=== PATIENT | female | born 1955 | race Caucasian/White ===

== ENCOUNTER 2019-05-20 06:36 | Emergency (ER) | payer BC, OTHER ==
[2019-05-20] MEDS ORDERED: Nitroglycerin 0.4 MG Tab.SL SL ONE (06:48)
[2019-05-20] MEDS ORDERED: Aspirin 325 MG Tab.EC PO ONE (06:48)
--- NOTE | 2019-05-20 07:14 | EDM.PDOC ---
ED HPI GENERAL MEDICAL PROBLEM - General Stated Complaint: CHEST PAIN Time Seen by Provider: 05/20/19 07:00 Source of Information: Reports: Patient, Family History Limitations: Reports: No Limitations - History of Present Illness INITIAL COMMENTS - FREE TEXT/NARRATIVE: 63 y.o.w.f with a H/O HTN, came to the ed with her SO due to sudden onset of SSCP located at her left mid ant chest, not radiating, no diaphoresis, no N/V no lightheadedness. No trauma, no other acute med issues. No other acute med issues. MARINA 156/86 RR 18 Pulse ox 96% on RA Pulse 83 Temp 36.8 Onset Date: 05/20/19 Onset Time: 03:00 Duration: Minutes:, Hour(s): Location: Reports: Chest Quality: Reports: Dull, Pressure Severity: Moderate Improves with: Reports: Medication Worsens with: Reports: Movement Context: Reports: Other Associated Symptoms: Reports: Chest Pain, Other (nausea) - Related Data Allergies Allergy/AdvReac Type Severity Reaction Status Date / Time epinephrine Allergy Anxiety Verified 05/20/19 07:27 anesthesia Allergy Nausea and Uncoded 05/20/19 07:13 Vomiting Home Meds: Home Meds Rosuvastatin [Crestor] 10 mg PO BEDTIME 02/04/14 [History] ALPRAZolam [Xanax] 0.5 - 1 tab PO BID PRN 05/20/19 [History] Magnesium Oxide [Magnesium] 500 mg PO BEDTIME 05/20/19 [History] Turmeric Root Extract [Turmeric] 500 mg PO BID 05/20/19 [History] Valsartan/Hydrochlorothiazide [Valsartan-Hctz 80-12.5 mg Tab] 1 each PO DAILY [History] buPROPion HCl [buPROPion SR] 200 mg PO BID 05/20/19 [History] ED ROS GENERAL - Review of Systems Review Of Systems: See Below Constitutional: Reports: No Symptoms HEENT: Reports: No Symptoms Respiratory: Reports: No Symptoms Cardiovascular: Reports: Chest Pain (04/30) Endocrine: Reports: No Symptoms GI/Abdominal: Reports: No Symptoms : Reports: No Symptoms Musculoskeletal: Reports: No Symptoms Skin: Reports: No Symptoms Neurological: Reports: No Symptoms Psychiatric: Reports: No Symptoms Hematologic/Lymphatic: Reports: No Symptoms Immunologic: Reports: No Symptoms ED EXAM, GENERAL - Physical Exam Exam: See Below Exam Limited By: No Limitations General Appearance: Alert, WD/WN, Mild Distress Eye Exam: Bilateral Eye: Normal Inspection Ears: Normal External Exam Ear Exam: Bilateral Ear: Auricle Normal Nose: Normal Inspection, Normal Mucosa, No Blood Throat/Mouth: Normal Inspection, Normal Lips, Normal Voice, No Airway Compromise Head: Atraumatic, Normocephalic Neck: Normal Inspection, Supple, Non-Tender, Full Range of Motion Respiratory/Chest: No Respiratory Distress, Lungs Clear, Normal Breath Sounds, Chest Non-Tender Cardiovascular: Normal Peripheral Pulses, Regular Rate, Rhythm, No Edema, No Gallop, No Murmur, No Rub Peripheral Pulses: 2+: Brachial (L) GI/Abdominal: Normal Bowel Sounds, Soft, Non-Tender, No Organomegaly, No Abnormal Bruit, No Mass, Pelvis Stable (Female) Exam: Deferred Rectal (Female) Exam: Deferred Back Exam: Normal Inspection, Full Range of Motion Extremities: Normal Inspection, Normal Range of Motion, Non-Tender, Normal Capillary Refill Neurological: Alert, Oriented, CN II-XII Intact, Normal Cognition, Normal Gait, No Motor/Sensory Deficits Psychiatric: Normal Affect, Normal Mood Skin Exam: Warm, Dry, Intact, Normal Color, No Rash Lymphatic: No Adenopathy EKG INTERPRETATION EKG Date: 05/20/19 Time: 07:00 Rhythm: NSR Rate (Beats/Min): 82 [place]: Normal P-Wave: Present QRS: Normal ST-T: Normal QT: Normal Comparison: NA - No Prior EKG (no change on the 2nd ECG taken 3 hours later) Course - Vital Signs Text/Narrative:: 63 y.o.w.f with a H/O HTN, came to the ed with her SO due to sudden onset of SSCP located at her left mid ant chest, not radiating, no diaphoresis, no N/V no lightheadedness. No trauma, no other acute med issues. No other acute med issues. MARINA 156/86 RR 18 Pulse ox 96% on RA Pulse 83 Temp 36.8 PE: WNWD W F with chest pain. Imaging: CXR: Mild atelectasis at base, otherwise NAD as per RAD Labs: CBC nl except Lymphs 40.7 BMP nl except: K 3.4 Cl 98 BUN 23 Cr 1.2 GFR 46 Troponin: 0.017 initially and at 10 am Lipid panel: Nl Impression: Atypical chest pain, Hypokalemia (3.4) Tx: ASA, NTG 0.04 mg.Losartan, Potassium 40 mque Reexam: Pain subsided. BP on D/C was 123/86 Plan: D/C with instructions L Last Recorded V/S: Last Vital Signs Temp 36.4 C 05/20/19 06:40 Pulse 79 05/20/19 07:30 Resp 16 05/20/19 07:30 BP 154/81 H 05/20/19 07:40 Pulse Ox 96 05/20/19 07:30 - Orders/Labs/Meds Orders: Active Orders 24 hr Category Date Time Status EKG Documentation Completion [RC] ASDIRECTED Care 05/20/19 06:48 Active EKG Documentation Completion [RC] ASDIRECTED Care 05/20/19 10:00 Active Chest 1V Frontal [CR] Stat Exams 05/20/19 07:08 Taken EKG 12 Lead [EK] Routine Ther 05/20/19 06:48 Ordered EKG 12 Lead [EK] Routine Ther 05/20/19 08:27 Ordered Labs: Laboratory Tests 05/20/19 05/20/19 05/20/19 Range/Units 06:42 06:52 06:52 WBC 6.4 (4.5-12.0) X10-3/uL RBC 4.33 (3.23-5.20) x10(6)uL Hgb 13.3 (11.5-15.5) g/dL Hct 39.4 (30.0-51.3) % MCV 91.0 (80-96) fL MCH 30.6 (27.7-33.6) pg MCHC 33.7 (32.2-35.4) g/dL RDW 12.5 (11.5-15.5) % Plt Count 355 (125-369) X10(3)uL MPV 7.7 (7.4-10.4) fL Neut % (Auto) 42.7 L (46-82) % Lymph % (Auto) 40.9 H (13-37) % [place] % (Auto) 9.6 (4-12) % Eos % (Auto) 6 H (1.0-5.0) % Baso % (Auto) 1 (0-2) % Neut # (Auto) 2.7 (1.6-8.3) # Lymph # (Auto) 2.6 (0.6-5.0) # Fergus # (Auto) 0.6 (0.0-1.3) # Eos # (Auto) 0.4 (0.0-0.8) # Baso # (Auto) 0.1 (0.0-0.2) # D-Dimer, Quantitative 0.41 (0.0-0.59) mg/LFEU Sodium (135-145) mmol/L Potassium (3.5-5.3) mmol/L Chloride (100-110) mmol/L Carbon Dioxide (21-32) mmol/L BUN (7-18) mg/dL Creatinine (0.55-1.02) mg/dL Est Cr Clr Drug Dosing Estimated GFR (MDRD) (>60) BUN/Creatinine Ratio (9-20) Glucose (80-116) mg/dL Calcium (8.6-10.2) mg/dL Magnesium 2.1 (1.8-2.5) mg/dL Total Bilirubin (0.1-1.3) mg/dL AST (5-25) IU/L ALT (12-36) U/L Alkaline Phosphatase (56-112) IU/L Troponin I (<0.017-0.056) ng/mL Total Protein (6.0-8.0) g/dL Albumin (3.2-4.6) g/dL Globulin g/dL Albumin/Globulin Ratio Triglycerides (15-150) mg/dL Cholesterol (50-200) mg/dL LDL Cholesterol Direct (60-130) mg/dL HDL Cholesterol (40-75) mg/dL Cholesterol/HDL Ratio (0-5) 05/20/19 05/20/19 05/20/19 Range/Units 06:52 06:52 09:50 WBC (4.5-12.0) X10-3/uL RBC (3.23-5.20) x10(6)uL Hgb (11.5-15.5) g/dL Hct (30.0-51.3) % MCV (80-96) fL MCH (27.7-33.6) pg MCHC (32.2-35.4) g/dL RDW (11.5-15.5) % Plt Count (125-369) X10(3)uL MPV (7.4-10.4) fL Neut % (Auto) (46-82) % Lymph % (Auto) (13-37) % [place] % (Auto) (4-12) % Eos % (Auto) (1.0-5.0) % Baso % (Auto) (0-2) % Neut # (Auto) (1.6-8.3) # Lymph # (Auto) (0.6-5.0) # [place] # (Auto) (0.0-1.3) # Eos # (Auto) (0.0-0.8) # Baso # (Auto) (0.0-0.2) # D-Dimer, Quantitative (0.0-0.59) mg/LFEU Sodium 144 (135-145) mmol/L Potassium 3.4 L (3.5-5.3) mmol/L Chloride 98 L (100-110) mmol/L Carbon Dioxide 29 (21-32) mmol/L BUN 21 H (7-18) mg/dL Creatinine 1.2 H (0.55-1.02) mg/dL Est Cr Clr Drug Dosing TNP Estimated GFR (MDRD) 46 L (>60) BUN/Creatinine Ratio 17.5 (9-20) Glucose 99 (80-116) mg/dL Calcium 9.4 (8.6-10.2) mg/dL Magnesium (1.8-2.5) mg/dL Total Bilirubin 0.4 (0.1-1.3) mg/dL AST 17 (5-25) IU/L ALT 32 (12-36) U/L Alkaline Phosphatase 67 (56-112) IU/L Troponin I < 0.017 L < 0.017 L (<0.017-0.056) ng/mL Total Protein 7.5 (6.0-8.0) g/dL Albumin 3.3 (3.2-4.6) g/dL Globulin 4.2 g/dL Albumin/Globulin Ratio 0.8 Triglycerides (15-150) mg/dL Cholesterol (50-200) mg/dL LDL Cholesterol Direct (60-130) mg/dL HDL Cholesterol (40-75) mg/dL Cholesterol/HDL Ratio (0-5) /30/ Range/Units 09:50 WBC (4.5-12.0) X10-3/uL RBC (3.23-5.20) x10(6)uL Hgb (11.5-15.5) g/dL Hct (30.0-51.3) % MCV (80-96) fL MCH (27.7-33.6) pg MCHC (32.2-35.4) g/dL RDW (11.5-15.5) % Plt Count (125-369) X10(3)uL MPV (7.4-10.4) fL Neut % (Auto) (46-82) % Lymph % (Auto) (13-37) % [place] % (Auto) (4-12) % Eos % (Auto) (1.0-5.0) % Baso % (Auto) (0-2) % Neut # (Auto) (1.6-8.3) # Lymph # (Auto) (0.6-5.0) # [place] # (Auto) (0.0-1.3) # Eos # (Auto) (0.0-0.8) # Baso # (Auto) (0.0-0.2) # D-Dimer, Quantitative (0.0-0.59) mg/LFEU Sodium 141 (135-145) mmol/L Potassium 3.8 (3.5-5.3) mmol/L Chloride 104 D (100-110) mmol/L Carbon Dioxide 26 (21-32) mmol/L BUN 19 H (7-18) mg/dL Creatinine 1.1 H (0.55-1.02) mg/dL Est Cr Clr Drug Dosing 48.33 Estimated GFR (MDRD) 50 L (>60) BUN/Creatinine Ratio 17.3 (9-20) Glucose 111 (80-116) mg/dL Calcium 9.1 (8.6-10.2) mg/dL Magnesium (1.8-2.5) mg/dL Total Bilirubin (0.1-1.3) mg/dL AST (5-25) IU/L ALT (12-36) U/L Alkaline Phosphatase (56-112) IU/L Troponin I (<0.017-0.056) ng/mL Total Protein (6.0-8.0) g/dL Albumin (3.2-4.6) g/dL Globulin g/dL Albumin/Globulin Ratio Triglycerides 82 (15-150) mg/dL Cholesterol 178 (50-200) mg/dL LDL Cholesterol Direct 93 (60-130) mg/dL HDL Cholesterol 57 (40-75) mg/dL Cholesterol/HDL Ratio 3.1 (0-5) Meds: Medications Discontinued Medications Generic Name Dose Route Start Last Admin Trade Name Freq PRN Reason Stop Dose Admin Aspirin 325 mg 05/20/19 06:48 05/20/19 06:50 Ecotrin PO 05/20/19 06:49 325 mg ONETIME ONE Administration Losartan Potassium 25 mg 05/20/19 07:33 05/20/19 07:40 Cozaar PO 05/20/19 07:34 25 mg ONETIME STA Administration Nitroglycerin 0.4 mg 05/20/19 06:48 05/20/19 06:56 Nitrostat SL 05/20/19 06:49 0.4 mg ONETIME ONE Administration Ondansetron HCl 8 mg 05/20/19 08:40 05/20/19 08:45 Zofran IVPUSH 05/20/19 08:41 8 mg ONETIME ONE Administration Potassium Chloride 40 meq 05/20/19 07:52 05/20/19 07:57 Klor-Con M20 PO 05/20/19 07:53 40 meq ONETIME ONE Administration Departure - Departure Time of Disposition: 10:28 Disposition: Home, Self-Care 01 Condition: Good Clinical Impression: Atypical chest pain Instructions: Nonspecific Chest Pain, [id number] Referrals: Betsy Rainey MD [Primary Care Provider] - Forms: ED Return to Work/School Form Additional Instructions: Please cont your current meds, please f/u, come back if your symptoms get worse acutely. - My Orders Last 24 Hours: My Active Orders 05/20/19 08:27 EKG 12 Lead [EK] Routine 05/20/19 10:00 EKG Documentation Completion [RC] ASDIRECTED - Assessment/Plan Last 24 Hours: My Active Orders 05/20/19 08:27 EKG 12 Lead [EK] Routine 05/20/19 10:00 EKG Documentation Completion [RC] ASDIRECTED
[2019-05-20] MEDS ORDERED: Losartan 25 MG Tab PO STA (07:33)
[2019-05-20] MEDS ORDERED: Potassium Chloride 20 MEQ Tab.ER PO ONE (07:52)
[2019-05-20] MEDS ORDERED: Ondansetron 4 MG/2 ML SDV IVPUSH ONE (08:40)
== END 2019-05-20 10:40 | disposition home or self-care (01) ==
LOC: FB.ED 06:36
DX: R07.89 Other chest pain (principal); E87.6 Hypokalemia; Z88.4 Allergy status to anesthetic agent; Z88.8 Allergy status to other drugs, medicaments and biological substances; Z79.899 Other long term (current) drug therapy
CPT/HCPCS: 36415; 71045; 80048; 80053; 80061; 83735; 84484; 85025; 85379; 93005; 96374; 99285; A9270; J2405

== ENCOUNTER 2021-09-18 10:07 | Emergency (ER) | payer BC ==
[2021-09-18] MEDS ORDERED: Sodium Chloride 0.9% 10 ML Syringe FLUSH PRN (10:26)
[2021-09-18] MEDS ORDERED: Ondansetron 4 MG/2 ML SDV IVPUSH ONE (10:28)
[2021-09-18] MEDS ORDERED: Sodium Chloride 0.9% 1,000 ML IV ONE (11:45)
[2021-09-18] MEDS ORDERED: Potassium Chloride 20 MEQ Packet PO SCH (12:00)
[2021-09-18] MEDS ORDERED: Potassium Chloride 20 MEQ Tab.ER ONE (12:21)
[2021-09-18] MEDS ORDERED: Potassium Chloride 20 MEQ Packet PO ONE (12:23)
--- NOTE | 2021-09-18 13:55 | EDM.PDOC ---
ED HPI GENERAL MEDICAL PROBLEM - General Chief Complaint: Chest Pain Stated Complaint: SOB Time Seen by Provider: 09/18/21 10:25 Source of Information: Reports: Patient History Limitations: Reports: No Limitations - History of Present Illness INITIAL COMMENTS - FREE TEXT/NARRATIVE: 65-year-old female who reports that at approximately 8 AM she awoke with a sharp and poking type pain in her left upper chest that lasted for about 10 seconds and then went away. Following this she felt somewhat lightheaded and a little short of breath and she has developed some nausea. She states that at the time she had the pain it was at and 8/10 level of discomfort. She has had no pain since then has persisted with the feelings of shortness of breath and nausea. She also reports that she has been having some chills but no measured fever and that actually began yesterday. She has had no cough. No abdominal pain. She denies any pain at all now and would rated her pain as a 0/10. She did take a full strength aspirin and because her sister has coronary artery disease and had an ND at age 56, she presented to the emergency department for evaluation. She has had no vomiting. There has been no diarrhea. No dysuria or hematuria. She states that she is under a lot of stress right now and that she has recently lost her mother and she is working very hard and doing overtime at work with recently working 5 consecutive 13 hour shifts. She presents via private vehicle with her . Other associated signs or symptoms. There are no other modifying factors. 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 mg) - Related Data Allergies Allergy/AdvReac Type Severity Reaction Status Date / Time epinephrine Allergy Anxiety Verified 09/18/21 10:18 tramadol Allergy Nausea Verified 09/18/21 10:19 anesthesia Allergy Nausea and Uncoded 09/18/21 10:18 Vomiting Home Meds: Home Meds Rosuvastatin [Crestor] 10 mg PO BEDTIME 02/04/14 [History] ALPRAZolam [Xanax] 0.5 - 1 tab PO BID PRN 05/20/19 [History] Magnesium Oxide [Magnesium] 500 mg PO BEDTIME 05/20/19 [History] Turmeric Root Extract [Turmeric] 500 mg PO BID 05/20/19 [History] Valsartan/Hydrochlorothiazide [Valsartan-Hctz 80-12.5 mg Tab] 1 each PO DAILY 05/20/19 [History] buPROPion HCL [buPROPion SR] 200 mg PO BID 05/20/19 [History] Past Medical History Cardiovascular History: Reports: High Cholesterol, Hypertension Musculoskeletal History: Reports: Arthritis Psychiatric History: Reports: Anxiety, Depression - Past Surgical History GI Surgical History: Reports: Cholecystectomy Female Surgical History: Reports: Tubal Ligation Musculoskeletal Surgical History: Reports: Arthroscopic Knee (2 of the left knee) Other Musculoskeletal Surgeries/Procedures:: States two surgeries on left knee. Social & Family History - Family History Cardiac: Reports: CAD, ND - Tobacco Use Tobacco Use Status *Q: Unknown Ever Used Tobacco (Nonsmoker) - Alcohol Use Alcohol Use History: Yes Alcohol Use Frequency: Rarely - Living Situation & Occupation Living situation: Reports: Occupation: Employed (Works at [employer]) ED ROS GENERAL - Review of Systems Review Of Systems: See Below Constitutional: Reports: Chills, Malaise. Denies: Fever, Diaphoresis HEENT: Reports: Other (No nasal congestion). Denies: Throat Pain, Throat Swelling Respiratory: Reports: Shortness of Breath. Denies: Cough, Hemoptysis Cardiovascular: Reports: Chest Pain, Lightheadedness. Denies: Dyspnea on Exertion, Palpitations Endocrine: Reports: Fatigue GI/Abdominal: Reports: Nausea. Denies: Abdominal Pain, Vomiting Musculoskeletal: Denies: Neck Pain, Back Pain Skin: Denies: Diaphoresis, Rash Neurological: Reports: Dizziness. Denies: Headache, Syncope Psychiatric: Reports: Anxiety Hematologic/Lymphatic: Denies: Easy Bleeding, Easy Bruising ED EXAM, GENERAL - Physical Exam Exam: See Below Exam Limited By: No Limitations General Appearance: Alert, WD/WN, Mild Distress (Appears somewhat uncomfortable. No respiratory distress.) Eye Exam: Bilateral Eye: EOMI, Normal Inspection (Sclera are anicteric), PERRL Ears: Normal External Exam, Hearing Grossly Normal Ear Exam: Bilateral Ear: Auricle Normal Nose: Normal Inspection, Normal Mucosa, No Blood Throat/Mouth: Normal Voice, No Airway Compromise, Other (Dry mucous membranes) Head: Atraumatic, Normocephalic Neck: Normal Inspection, Supple, Non-Tender, Full Range of Motion Respiratory/Chest: No Respiratory Distress, Lungs Clear, Normal Breath Sounds, No Accessory Muscle Use, Chest Non-Tender Cardiovascular: Normal Peripheral Pulses, Regular Rate, Rhythm, No Edema, No Gallop, No Murmur Peripheral Pulses: 2+: Radial (L), Radial (R) GI/Abdominal: Normal Bowel Sounds, Soft, Non-Tender, No Mass Back Exam: Normal Inspection Extremities: Normal Inspection, Normal Range of Motion, Non-Tender, No Pedal Edema, Normal Capillary Refill Neurological: Alert, Oriented, CN II-XII Intact, Normal Cognition, No Mo tor/Sensory Deficits Psychiatric: Normal Affect Skin Exam: Warm, Dry, Intact, Normal Color, No Rash #1 Interpretation EKG Date: 09/18/21 Time: 10:09 Rhythm: NSR Rate (Beats/Min): 98 [place]: Normal P-Wave: Present QRS: Normal ST-T: Other (Diffuse ST-T changes that are nonspecific.) QT: Prolonged (Prolonged QTc.) Comparison: No Change (No significant changes from an EKG performed on 05/20/2018.) Course - Vital Signs Last Recorded V/S: Last Vital Signs Temp 36.6 C 09/18/21 10:07 Pulse 105 H 09/18/21 10:07 Resp 19 09/18/21 10:07 BP 167/98 H 09/18/21 10:07 Pulse Ox 98 09/18/21 10:07 - Orders/Labs/Meds Orders: Active Orders 24 hr Category Date Time Status EKG Documentation Completion [RC] ASDIRECTED Care 09/18/21 10:27 Active Chest 1V Frontal [CR] Stat Exams 09/18/21 10:27 Taken UA W/MICROSCOPIC [URIN] Stat Lab 09/18/21 11:46 Ordered Sodium Chloride 0.9% [Saline Flush] Med 09/18/21 10:26 Active 10 ml FLUSH ASDIRECTED PRN Peripheral IV Insertion Adult [OM.PC] Routine Oth 09/18/21 10:26 Ordered EKG 12 Lead [EK] Routine Ther 09/18/21 10:26 Ordered Medication Orders Sodium Chloride (Sodium Chloride 0.9% 10 Ml Syringe) 10 ml FLUSH ASDIRECTED PRN PRN Reason: Keep Vein Open Labs: Laboratory Tests 09/18/21 09/18/21 09/18/21 Range/Units 10:40 10:40 10:40 WBC 6.8 (3.0-10.3) x10-3/uL RBC 4.08 (3.60-5.20) x10(6)uL Hgb 12.5 (11.4-15.5) g/dL Hct 37.3 (34.2-48.2) % MCV 91.4 (76.7-100.5) fL MCH 30.6 (23.9-33.9) pg MCHC 33.5 (31.9-34.8) g/dL RDW 12.8 (12.3-16.5) % Plt Count 342 (151-488) x10(3)uL MPV 6.9 L (7.1-12.4) fL Neut % (Auto) 65.9 (30.8-76.2) % Lymph % (Auto) 21.5 (18.4-52.1) % [place] % (Auto) 8.6 (4.4-15.7) % Eos % (Auto) 3.1 (0.6-8.1) % Baso % (Auto) 0.9 (0.2-1.5) % Neut # (Auto) 4.5 (1.5-6.3) x10-3/uL Lymph # (Auto) 1.5 (1.0-4.4) x10-3/uL [place] # (Auto) 0.6 (0.3-1.0) x10-3/uL Eos # (Auto) 0.2 (0.0-0.8) x10-3/uL Baso # (Auto) 0.1 (0.0-0.1) x10-3/uL D-Dimer, Quantitative 0.50 (0.0-0.59) mg/LFEU Sodium 141 (135-145) mmol/L Potassium 3.3 L D (3.5-5.3) mmol/L Chloride 105 (100-110) mmol/L Carbon Dioxide 26 (21-32) mmol/L BUN 20 H (7-18) mg/dL Creatinine 1.1 H (0.55-1.02) mg/dL Est Cr Clr Drug Dosing TNP Estimated GFR (MDRD) 50 L (>60) BUN/Creatinine Ratio 18.2 (9-20) Glucose 111 (80-116) mg/dL Calcium 8.9 (8.6-10.2) mg/dL Magnesium 2.3 (1.8-2.5) mg/dL Total Bilirubin 0.3 (0.1-1.3) mg/dL AST 17 D (5-25) IU/L ALT 31 D (12-36) U/L Alkaline Phosphatase 54 L (56-112) IU/L Troponin I (4.0-60.3) pg/mL Total Protein 7.5 (6.0-8.0) g/dL Albumin 3.5 (3.2-4.6) g/dL Globulin 4.0 g/dL Albumin/Globulin Ratio 0.9 09/18/21 09/18/21 Range/Units 10:40 13:00 WBC (3.0-10.3) x10-3/uL RBC (3.60-5.20) x10(6)uL Hgb (11.4-15.5) g/dL Hct (34.2-48.2) % MCV (76.7-100.5) fL MCH (23.9-33.9) pg MCHC (31.9-34.8) g/dL RDW (12.3-16.5) % Plt Count (151-488) x10(3)uL MPV (7.1-12.4) fL Neut % (Auto) (30.8-76.2) % Lymph % (Auto) (18.4-52.1) % [place] % (Auto) (4.4-15.7) % Eos % (Auto) (0.6-8.1) % Baso % (Auto) (0.2-1.5) % Neut # (Auto) (1.5-6.3) x10-3/uL Lymph # (Auto) (1.0-4.4) x10-3/uL [place] # (Auto) (0.3-1.0) x10-3/uL Eos # (Auto) (0.0-0.8) x10-3/uL Baso # (Auto) (0.0-0.1) x10-3/uL D-Dimer, Quantitative (0.0-0.59) mg/LFEU Sodium (135-145) mmol/L Potassium (3.5-5.3) mmol/L Chloride (100-110) mmol/L Carbon Dioxide (21-32) mmol/L BUN (7-18) mg/dL Creatinine (0.55-1.02) mg/dL Est Cr Clr Drug Dosing Estimated GFR (MDRD) (>60) BUN/Creatinine Ratio (9-20) Glucose (80-116) mg/dL Calcium (8.6-10.2) mg/dL Magnesium (1.8-2.5) mg/dL Total Bilirubin (0.1-1.3) mg/dL AST (5-25) IU/L ALT (12-36) U/L Alkaline Phosphatase (56-112) IU/L Troponin I < 4.0 L 4.1 (4.0-60.3) pg/mL Total Protein (6.0-8.0) g/dL Albumin (3.2-4.6) g/dL Globulin g/dL Albumin/Globulin Ratio Meds: Medications Generic Name Dose Route Start Last Admin Trade Name Freq PRN Reason Stop Dose Admin Sodium Chloride 10 ml 09/18/21 10:26 Sodium Chloride 0.9% 10 Ml Syringe FLUSH ASDIRECTED PRN Keep Vein Open Discontinued Medications Generic Name Dose Route Start Last Admin Trade Name Freq PRN Reason Stop Dose Admin Sodium Chloride 1,000 mls @ 999 mls/hr 09/18/21 11:45 09/18/21 12:16 Normal Saline IV 09/18/21 12:45 999 mls/hr .BOLUS ONE Administration Ondansetron HCl 4 mg 09/18/21 10:28 09/18/21 11:09 Ondansetron 4 Mg/2 Ml Sdv IVPUSH 09/18/21 10:29 4 mg ONETIME ONE Administration Potassium Chloride 40 meq 09/18/21 12:00 Potassium Chloride 20 Meq Packet PO ASDIRECTED KIM Potassium Chloride 40 meq 09/18/21 12:23 09/18/21 12:33 Potassium Chloride 20 Meq Packet PO 09/18/21 12:24 40 meq ONETIME ONE Administration Potassium Chloride Confirm 09/18/21 12:21 09/18/21 12:26 Potassium Chloride 20 Meq Tab.Er Administered 09/18/21 12:22 Not Given Dose 40 meq .ROUTE .K-MED ONE - Radiology Interpretation Free Text/Narrative:: Portable chest x-ray shows no acute disease per my read. - Re-Assessments/Exams Free Text/Narrative Re-Assessment/Exam: 09/18/21 11:15: What blood cell count is 6.8. Hemoglobin is 12.5. Platelet count is normal. Sodium is 141. Potassium is 3.3. Bicarbonate was 26. BUN is 20 and creatinine is 1.1. Glucose is 111. LFTs are normal. The initial troponin is negative. Chest x-ray showed no acute disease. The EKG showed no changes from a previous EKG back in 2019. She is feeling somewhat improved. She is getting normal saline 1 L bolus IV. We will continue to closely monitor the patient. 09/18/21 13:50: Repeat troponin is normal at 2 hours post initial troponin. The patient feels much improved and is "back to my normal self". She was really not able to take the liquid potassium and she will take an extra potassium when she gets home. She'll ready for discharge. I am unsure why she had her symptoms but I suspect that it was due to a combination of her being somewhat dehydrated and a lot of stress in her life. She does not appear to be having any acute issue with her heart and PE was essentially ruled out with a negative d-dimer and normal pulse rate and oxygen saturation. I discussed all this with the patient and I feel that she needs to follow up with her primary provider this next week. She does need to increase her fluid intake and she needs try to reduce the stress in her life. Precautions and reasons for return to the emergency department discussed with the patient and with her while the patient was in the emergency department for detailed in the patient's discharge instructions. Departure - Departure Time of Disposition: 13:57 Disposition: Home, Self-Care 01 Condition: Good (Improved) Clinical Impression: Non-cardiac chest pain, Dehydration, Hypokalemia, Stress Instructions: Hypokalemia, Dehydration, Adult, [id number], Nonspecific Chest Pain, Adult, [id number] Referrals: PCP,Not In Area [Primary Care Provider] - Forms: ED Department Discharge Additional Instructions: Your EKG was unchanged from a previous EKG 2 years ago. Your chest x-ray was normal. Your urine test showed no evidence of infection. Your blood tests showed some evidence of dehydration and you had a mildly low potassium level. Your heart enzyme test were negative 2 over time I am unsure why you had the episode of chest pain and the"feeling poorly" and I suspect it is due to you being somewhat dehydrated and also to the stress that you have in your life now. You did seem to be improved significantly after the IV fluids. It is important that you follow-up with your primary provider within the next week as you may need to have your heart checked out more fully. Rest. Try to reduce the stress in your life. Increase your fluid intake. Back to the emergency department for recurrent/persistent chest pain, vomiting, worsening or new weakness, recurrent/worsening shortness of breath or any other concerning signs or sympto ms. Sepsis Event Note (ED) - Focused Exam Vital Signs: Vital Signs Temp Pulse Resp BP Pulse Ox 09/18/21 10:07 36.6 C 105 H 19 167/98 H 98 - My Orders Last 24 Hours: My Active Orders 09/18/21 10:26 Sodium Chloride 0.9% [Saline Flush] 10 ml FLUSH ASDIRECTED PRN Peripheral IV Insertion Adult [OM.PC] Routine EKG 12 Lead [EK] Routine 09/18/21 10:27 EKG Documentation Completion [RC] ASDIRECTED Chest 1V Frontal [CR] Stat 09/18/21 11:46 UA W/MICROSCOPIC [URIN] Stat - Assessment/Plan Last 24 Hours: My Active Orders 09/18/21 10:26 Sodium Chloride 0.9% [Saline Flush] 10 ml FLUSH ASDIRECTED PRN Peripheral IV Insertion Adult [OM.PC] Routine EKG 12 Lead [EK] Routine 09/18/21 10:27 EKG Documentation Completion [RC] ASDIRECTED Chest 1V Frontal [CR] Stat 09/18/21 11:46 UA W/MICROSCOPIC [URIN] Stat
== END 2021-09-18 14:20 | disposition home or self-care (01) ==
LOC: FB.ED 10:07
DX: E86.0 Dehydration (principal); E87.6 Hypokalemia; F43.9 Reaction to severe stress, unspecified; R07.89 Other chest pain; E78.00 Pure hypercholesterolemia, unspecified; I10 Essential (primary) hypertension; Z88.5 Allergy status to narcotic agent; Z88.4 Allergy status to anesthetic agent; Z88.8 Allergy status to other drugs, medicaments and biological substances; Z79.899 Other long term (current) drug therapy
CPT/HCPCS: 36415; 71045; 80053; 83735; 84484; 85025; 85379; 93005; 96374; 99285-25; A9270-GY; J2405; J7030

== ENCOUNTER 2021-12-20 03:55 | Emergency (ER) | payer BC ==
[2021-12-20] MEDS ORDERED: Nitrofurantoin Monohydrate/Macrocrystalline 100 MG Cap PO ONE (05:49)
== END 2021-12-20 06:35 | disposition home or self-care (01) ==
LOC: FB.ED 03:55
DX: R07.89 Other chest pain (principal); A08.4 Viral intestinal infection, unspecified; N39.0 Urinary tract infection, site not specified; F41.9 Anxiety disorder, unspecified; E66.9 Obesity, unspecified; E78.00 Pure hypercholesterolemia, unspecified; I10 Essential (primary) hypertension; Z88.1 Allergy status to other antibiotic agents; Z88.4 Allergy status to anesthetic agent; Z88.5 Allergy status to narcotic agent; Z79.899 Other long term (current) drug therapy; Z68.38 Body mass index [BMI] 38.0-38.9, adult
CPT/HCPCS: 36415; 80053; 81001; 84484; 85025; 87086; 93005; 93010; 99283; 99285-25

== ENCOUNTER 2023-04-04 05:47 | Emergency (ER) | payer BC, OTHER ==
[2023-04-04 06:21] LABS: BASOPHILS PERCENT AUTO 0.4 % (0.2-1.5); EOSINOPHILS ABSOLUTE AUTO 0.4 x10-3/uL (0.0-0.8); EOSINOPHILS PERCENT AUTO 5.2 % (0.6-8.1); HEMATOCRIT 38.9 % (34.2-48.2); HEMOGLOBIN 12.9 g/dL (11.4-15.5); LYMPHOCYTES PERCENT AUTO 27.4 % (18.4-52.1); MEAN CORPUSCULAR HEMOGLOBIN 30.1 pg (23.9-33.9); MEAN CORPUSCULAR HGB CONC 33.3 g/dL (31.9-34.8); MEAN CORPUSCULAR VOLUME 90.4 fL (76.7-100.5); MEAN PLATELET VOLUME 7.3 fL (7.1-12.4); MONOCYTES ABSOLUTE AUTO 0.8 x10-3/uL (0.3-1.0); MONOCYTES PERCENT AUTO 10.6 % (4.4-15.7); NEUTROPHILS ABSOLUTE AUTO 4.1 x10-3/uL (1.5-6.3); NEUTROPHILS PERCENT AUTO 56.4 % (30.8-76.2); PLATELET COUNT,PLT 359 x10(3)uL (151-488); RED CELL DISTRIBUTION WIDTH 13.3 % (12.3-16.5); WHITE BLOOD CELL COUNT,WBC 7.2 x10-3/uL (3.0-10.3)
[2023-04-04 06:26] LABS: BLOOD UREA NITROGEN,BUN 26 mg/dL (7-18); BUN/CREATININE RATIO 23.6 (9-20); CALCIUM 9.8 mg/dL (8.6-10.2); CARBON DIOXIDE,CO2 29 mmol/L (21-32); CHLORIDE,CL 102 mmol/L (100-110); CREATININE 1.1 mg/dL (0.55-1.02); EST CRCL DRUG DOSING (CG) 45.88 mL/min; ESTIMATED GFR 56 mL/min (>60); GLUCOSE RANDOM 103 mg/dL (80-116); POTASSIUM,K 3.7 mmol/L (3.5-5.3); SODIUM,NA 140 mmol/L (135-145)
[2023-04-04 06:32] LABS: A/G RATIO 0.9; ALANINE AMINOTRANSFERASE,ALT 37 U/L (12-36); ALBUMIN 3.6 g/dL (3.2-4.6); ALKALINE PHOSPHATASE 62 IU/L (56-112); ASPARTATE AMNIOTRANSFERASE,AST 24 IU/L (5-25); BILIRUBIN TOTAL 0.4 mg/dL (0.1-1.3); PROTEIN TOTAL,TP 7.7 g/dL (6.0-8.0)
[2023-04-04] MEDS ORDERED: Alum Hydroxide/Mag Hydroxide 15 ML, Lidocaine 2% 15 ML PO ONE ×2 (06:49)
== END 2023-04-04 09:50 | disposition home or self-care (01) ==
LOC: FB.ED 05:47
DX: R07.89 Other chest pain (principal); I10 Essential (primary) hypertension; E78.00 Pure hypercholesterolemia, unspecified; Z88.5 Allergy status to narcotic agent; Z88.8 Allergy status to other drugs, medicaments and biological substances; Z88.4 Allergy status to anesthetic agent; Z79.899 Other long term (current) drug therapy
CPT/HCPCS: 36415; 80053; 84484; 85025; 93005; 99283; A9270

== ENCOUNTER 2024-01-22 20:51 | Emergency (ER) | payer MEDICARE, OTHER ==
[2024-01-22] MEDS ORDERED: Sodium Chloride 0.9% 10 ML Syringe FLUSH PRN (21:09)
[2024-01-22] MEDS: Aspirin 81 MG Tab.Chew PO ONE (21:11)
[2024-01-22] MEDS: Nitroglycerin 0.4 MG Tab.SL SL PRN (21:12)
[2024-01-22 21:18] LABS: BASOPHILS PERCENT AUTO 0.4 % (0.2-1.5); EOSINOPHILS ABSOLUTE AUTO 0.3 x10-3/uL (0.0-0.8); EOSINOPHILS PERCENT AUTO 3.2 % (0.6-8.1); HEMATOCRIT 39.1 % (34.2-48.2); HEMOGLOBIN 12.9 g/dL (11.4-15.5); LYMPHOCYTES ABSOLUTE AUTO 3.1 x10-3/uL (1.0-4.4); LYMPHOCYTES PERCENT AUTO 34.2 % (18.4-52.1); MEAN CORPUSCULAR HEMOGLOBIN 30.9 pg (23.9-33.9); MEAN CORPUSCULAR HGB CONC 33.1 g/dL (31.9-34.8); MEAN CORPUSCULAR VOLUME 93.3 fL (76.7-100.5); MEAN PLATELET VOLUME 7.4 fL (7.1-12.4); MONOCYTES ABSOLUTE AUTO 0.8 x10-3/uL (0.3-1.0); NEUTROPHILS ABSOLUTE AUTO 4.8 x10-3/uL (1.5-6.3); NEUTROPHILS PERCENT AUTO 53.2 % (30.8-76.2); PLATELET COUNT,PLT 371 x10(3)uL (151-488); RED BLOOD CELL COUNT 4.19 x10(6)uL (3.60-5.20); RED CELL DISTRIBUTION WIDTH 13.4 % (12.3-16.5); WHITE BLOOD CELL COUNT,WBC 8.9 x10-3/uL (3.0-10.3)
[2024-01-22 21:20] LABS: BLOOD UREA NITROGEN,BUN 21 mg/dL (7-18); BUN/CREATININE RATIO 17.5 (9-20); CALCIUM 9.4 mg/dL (8.6-10.2); CARBON DIOXIDE,CO2 26 mmol/L (21-32); CHLORIDE,CL 100 mmol/L (100-110); CREATININE 1.2 mg/dL (0.55-1.02); ESTIMATED GFR 50 mL/min (>60); GLUCOSE RANDOM 119 mg/dL (80-116); POTASSIUM,K 3.3 mmol/L (3.5-5.3); SODIUM,NA 138 mmol/L (135-145)
[2024-01-22 21:26] LABS: A/G RATIO 0.7; ALANINE AMINOTRANSFERASE,ALT 47 U/L (12-36); ALBUMIN 3.4 g/dL (3.2-4.6); ALKALINE PHOSPHATASE 60 IU/L (56-112); ASPARTATE AMNIOTRANSFERASE,AST 25 IU/L (5-25); BILIRUBIN TOTAL 0.4 mg/dL (0.1-1.3)
[2024-01-22 21:27] LABS: INR 1.07 (1.00-1.24); PTT,PARTIAL THROMBOPLSTIN TIME 25.6 SECONDS (24.4-33.2)
[2024-01-22] MEDS: LORazepam 2 MG/ML SDV IVPUSH STA (21:31)
[2024-01-22 21:33] LABS: TROPONIN I 5.6 pg/mL (4.0-60.3)
[2024-01-22] MEDS: LORazepam 2 MG/ML SDV IVPUSH ONE (21:38)
[2024-01-22] MEDS ORDERED: Potassium Chloride 20 MEQ Tab.ER PO STA (23:18)
== END 2024-01-22 23:34 | disposition home or self-care (01) ==
LOC: FB.ED 20:51
DX: R07.9 Chest pain, unspecified (principal); E87.6 Hypokalemia; I10 Essential (primary) hypertension; E78.00 Pure hypercholesterolemia, unspecified; Z79.899 Other long term (current) drug therapy; Z88.5 Allergy status to narcotic agent; Z88.3 Allergy status to other anti-infective agents; Z88.8 Allergy status to other drugs, medicaments and biological substances
CPT/HCPCS: 36415; 71045; 80053; 83880; 84484; 85025; 85610; 85730; 93005; 93010; 96374; 99283; 99285-25; A9270-GY; J2060